=== PATIENT | female | born 1985 | race Caucasian/White ===

== ENCOUNTER → 2017-01-01 | Outpatient (CLI) | payer BC ==
--- NOTE | 2017-01-02 05:27 | CT ---
Procedure: CT CHEST WITH IV CONTRAST Exam date: 01/01/2017 8:21 AM CDT Ordering Provider: BRITTNI POLO Clinical Indication: COUGH Comparison: None Technique: Using a multislice scanner, sequential axial imaging was obtained in the thorax from the level of the thoracic inlet through the lung bases. The exam was obtained with the administration of IV contrast. 2D sagittal and coronal reconstructed images were obtained. This exam was performed according to our departmental dose optimization program which includes use of automated exposure control, adjustment of the mA and/or kV according to patient size and/or use of iterative reconstruction technique. FINDINGS: There are no pulmonary masses or nodules. There is no alveolar or interstitial infiltrate. There are no pleural effusions. Cardiac size is normal. There is no pericardial effusion. Aorta and pulmonary arteries are grossly unremarkable. Bullous timing was not sent for pulmonary angiography and segmental or subsegmental pulmonary emboli cannot be excluded. No dissection or aneurysm seen. There is no supraclavicular or axillary lymphadenopathy. There is no mediastinal, hilar, or subcarinal lymphadenopathy. There are no skeletal abnormalities. IMPRESSION 1. Negative contrast enhanced CT scan of the chest. Electronically signed by: Gene Loaiza MD 01/02/2017 5:26 AM CDT
== END | disposition home or self-care (01) ==
LOC: CT 08:15
PROVIDERS: ATTEND Emergency Medicine
DX: R05 Cough (principal)

== ENCOUNTER 2018-01-22 23:12 | Emergency (ER) | payer BC ==
[2018-01-22] MEDS ORDERED: ALPRAZolam 0.25 MG TAB PO ONE (23:37)
[2018-01-22] MEDS ORDERED: SODIUM CHLORIDE 0.9% 1000ML 1,000 ML IVS ONE (23:37)
--- NOTE | 2018-01-22 23:44 | ED.PDOC ---
History of Present Illness - General Chief Complaint: Behavioral / Psych Stated Complaint: rash and shortness of breath Time Seen by Provider: 01/22/18 23:27 Source: patient Exam Limitations: no limitations - History of Present Illness Initial Comments: patient comes in today secondary to hives, tachycardia, and shortness of breath. Patient began having hives on but they seemed to worsen through Wednesday. On Wednesday she was seen by urgent care after her whole face was swollen and there are hives throughout her face, body, and extremities. She has no new lotions, soaps, or detergents. She has had no new food intake. However, she has been under some increased stress with her [id number] having recently had a stroke and urgent care thought the stress might be causative. Yesterday she was seen in urgent care clinic and given Benadryl, Atarax, and steroids. Patient states it did get better but they came back again today. Patient states that when she was seen in urgent care heart rate was in the 140s and that has persisted since yesterday. Currently, she feels like she has tightness to her chest with onset of . Patient's family was concerned that the hives have come back and she continues to have the shortness of breath that she originally was seen for at urgent care. Patient denies any fever, chills, cough or cold symptoms. She has no wheezing. However, she had been having some diarrhea, nausea, and decreased by mouth intake over the last 2 days. She has known anxiety disorder as well as as well as bipolar disorder but no other medical history. 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 She has been clean since cessation. The patient sugery history is positive for section 2 and Essure coil sterilization. Timing/Duration: 24 hours Severity: severe Improving Factors: nothing Worsening Factors: eating, movement Associated Symptoms: chest pain, nausea/vomiting Allergies/Adverse Reactions: Allergies NO KNOWN ALLERGY Allergy (Verified 01/22/18 23:24) Home Medications: Ambulatory Orders B-Complex Vitamins [Vitamin B-Complex] 1 tab PO DAILY 03/06/16 Celecoxib [CeleBREX] 100 mg PO DAILY 03/06/16 DULoxetine HCL [Cymbalta] 30 mg PO DAILY 03/06/16 Loratadine [Claritin] 10 mg PO DAILY 03/06/16 Multiple Vitamins W/ Minerals [Thrive For Life Womens] 1 tab PO DAILY 03/06/16 Metoprolol Succinate [Toprol Xl] 25 mg PO DAILY 15 Days #15 tab 01/23/18 Review of Systems - Review of Systems Constitutional: States: malaise, weakness. Denies: chills, fever EENTM: States: no symptoms reported. Denies: blurred vision, ear pain, nose pain, throat pain Respiratory: States: short of breath. Denies: cough, wheezing Cardiology: States: chest pain. Denies: edema, syncope Gastrointestinal/Abdominal: States: diarrhea, nausea. Denies: abdominal pain, constipation, vomiting Genitourinary: States: no symptoms reported. Denies: dysuria, frequency, hematuria Skin: States: see HPI Neurological: States: anxiety Past Medical History (General) - Patient Medical History Hx Dementia: No Hx Asthma: No Hx Cardiac Disorders: No Hx Congestive Heart Failure: No Hx Hypertension: No Hx Diabetes: No Hx Renal Disease: No Hx MRSA: No Hx Other PMH: Yes - bipolar and anxiety disorder Surgical History: other - Vaccination History Hx Tetanus, Diphtheria Vaccination: No Hx Influenza Vaccination: No Hx Pneumococcal Vaccination: No - Social History Hx Tobacco Use: No Hx Alcohol Use: Yes - occ Hx Depression: Yes - Female History Patient is a Female of Child Bearing Age (10 -59 yrs old): Yes Patient : No - Triage Comment ED Triage Comment: spouse reports pt started breaking out in hives on night and started having tightness in her chest on Wednesday. She was seen in urgent care on Wednesday, was given a steroid. However today she still feels short of breath, chest tightness, and her pulse is high around 130-140s. Pt still has rash that is itchy. Pt does have generalized anxiety disorder and is Bipolar. Pt and spouse have been going through lots of stress lately. Family Medical History - Family History Mother Hx Family Hypertension: Yes Father Hx Family Cancer: Yes Physical Exam - Physical Exam General Appearance: Alert, Ill Appearing Eye Exam: bilateral normal Ears, Nose, Throat: hearing grossly normal, normal ENT inspection, normal pharynx Neck: non-tender, full range of motion, supple, normal inspection Respiratory: chest non-tender, lungs clear, normal breath sounds, no respiratory distress, no accessory muscle use Cardiovascular/Chest: normal peripheral pulses, regular rate, rhythm, no edema, no gallop, no JVD, no murmur Peripheral Pulses: radial,right: 2+, radial,left: 2+ Gastrointestinal/Abdominal: normal bowel sounds, non tender, soft, no organomegaly Back Exam: normal inspection, no CVA tenderness Extremity: normal range of motion, non-tender Neurologic: alert, oriented x 3 Skin Exam: rash - blancable coalescing urticaria on face, chest, abdomen, and extremities Progress - Progress Progress: 01/23/18 00:21 patient continued to have shortness of breath that worsened during work up as her pulse raised to 144. Patient was given IV Labetolol and her symptoms greatly improved as her heart rate decreased to 104. After further questioning she did not she had lost 13 pounds in the last 2 weeks, she denies heat/cold intolerance, and states they had noticed in the last 3 weeks her fitness watch would note a HR in the 120s at times during rest. She has been more tired than usual. 01/23/18 03:39 Patient is feeling better. She continues to have some hives and some chest tightness that has been present since onset of the hives. Her breathing is better and her HR has stabilized at high 90s. We had called for possible transfer and discussed case with Dr. Workman in detail. Her EKG was reviewed and at this time he did not feel she needed urgent cardiology consult as she was improved and work up has been negative. D-dimer came back subsequently high and CTA was ordered. It was negative. He did suggest that she should have hypercoagable work up and venous doppler even if CTA was negative. We discussed this with patient. She has no swelling of her legs today. Plan for today is to start her on metoprolol xl 25 mg po qd and have her follow up with PCP on Wednesday. Repeat D-dimer and venous dopplers may need to be ordered at that time. Return to ER for increased heart rate, shortness of breath, worsening symptoms. 01/23/18 03:44 - Results/Orders Results/Orders: 01/22/18 23:37 Sodium Chloride 0.9% 1000ML [Ns 1000 ml] 1,000 ml IVS ONCE 01/22/18 23:55 HGBA1C [HEMOGLOBIN A1C] Stat 01/23/18 00:10 Chest,1 View [RAD] Stat 01/23/18 00:13 FREE THYROXINE (FT4) Stat Laboratory Results WBC 12.5 K/mm3 (4.8-10.8) H 01/22/18 23:37 RBC 4.59 M/mm3 (4.20-5.40) 01/22/18 23:37 Hgb 13.9 gm/dL (12.0-16.0) 01/22/18 23:37 Hct 41.3 % (36.0-47.0) 01/22/18 23:37 MCV 89.9 fl (81.0-99.0) 01/22/18 23:37 MCH 30.2 pg (27.0-31.0) 01/22/18 23:37 MCHC 33.6 g/dL (33.0-37.0) 01/22/18 23:37 RDW 13.1 % (11.5-14.5) 01/22/18 23:37 Plt Count 317 K/mm3 (130-400) 01/22/18 23:37 MPV 8.2 fl (7.40-10.4) 01/22/18 23:37 Absolute Neuts (auto) 11.10 K/uL (1.8-6.8) H 01/22/18 23:37 Absolute Lymphs (auto) 1.10 K/uL (1.0-3.4) 01/22/18 23:37 Absolute Monos (auto) 0.30 K/uL (0.2-0.8) 01/22/18 23:37 Absolute Eos (auto) 0.00 K/uL (0.0-0.4) 01/22/18 23:37 Absolute Basos (auto) 0.00 K/uL (0.0-0.1) 01/22/18 23:37 Neutrophils % 88.6 % (42.0-78.0) H 01/22/18 23:37 Lymphocytes % 8.6 % (20.0-50.0) L 01/22/18 23:37 Monocytes % 2.7 % (2.0-9.0) 01/22/18 23:37 Eosinophils % 0.0 % (1.0-5.0) L 01/22/18 23:37 Basophils % 0.1 % (0.0-2.0) 01/22/18 23:37 Sodium 137 mmol/L (135-145) 01/22/18 23:37 Potassium 3.7 mmol/L (3.6-5.0) 01/22/18 23:37 Chloride 104 mmol/L (101-111) 01/22/18 23:37 Carbon Dioxide 23 mmol/L (21-31) 01/22/18 23:37 Anion Gap 13.7 (12-18) 01/22/18 23:37 BUN 10 mg/dL (7-18) 01/22/18 23:37 Creatinine 0.71 mg/dL (0.6-1.3) 01/22/18 23:37 BUN/Creatinine Ratio 14.1 (-20) 01/22/18 23:37 Random Glucose 224 mg/dL (70-105) H 01/22/18 23:37 Serum Osmolality 279.8 mOsm/L (275-295) 01/22/18 23:37 Calcium 8.9 mg/dL (8.4-10.2) 01/22/18 23:37 Total Bilirubin 0.5 mg/dL (0.2-1.0) 01/22/18 23:37 AST 29 IU/L (10-42) 01/22/18 23:37 ALT 31 IU/L (10-60) 01/22/18 23:37 Alkaline Phosphatase 32 IU/L (42-121) L 01/22/18 23:37 Creatine Kinase 24 IU/L (26-140) L 01/22/18 23:37 CK-MB (CK-2) 0.5 ng/mL (0.0-4.4) 01/22/18 23:37 CK-MB (CK-2) % Not Reportable 01/22/18 23:37 Troponin I < 0.02 ng/mL (0.01-0.05) 01/22/18 23:37 Serum Total Protein 7.4 gm/dL (6.4-8.2) 01/22/18 23:37 Albumin 3.9 g/dl (3.2-5.5) 01/22/18 23:37 Globulin 3.5 gm/dL (2.3-3.5) 01/22/18 23:37 Albumin/Globulin Ratio 1.1 (1.1-1.9) 01/22/18 23:37 TSH 0.13 uIU/mL (0.34-5.60) L 01/22/18 23:37 AB.39/35.6/81/97.6% Patient Name: SADIE RODRIGUEZ Gender: Female Date of : 1985 Referring Physician: ANUSHKA MARTIN Organization: [facility] Accession Number: [id number] Requested Date: January 23, 2018 02:29 Report Status: Final Requested Procedure: 1 Procedure Description: CTA Chest Modality: CT Findings Reporting MD: Tank Marcano MD: Not available Dictation Time: Credit Risk Review Officer: Not available Drawing In Hand Date: EXAM: CT ANGIOGRAM OF THE CHEST USING INTRAVENOUS ADMINISTRATION OF NONIONIC IODINATED CONTRAST MATERIAL. CLINICAL INDICATION: Elevated d-dimer. Shortness of breath. COMPARISON: Today's chest radiograph. TECHNIQUE: Using helical technique, thin section axial images were performed through the chest after the uncomplicated intravenous administration of nonionic iodinated contrast material. Axially acquired data was then transferred to a dedicated CT workstation to facilitate parasagittal, coronal and volumetric 3-D reconstructions. Outbound Telemarketing Representative volumetric 3-D reconstructions for this examination were permanently stored on the PACS system. FINDINGS: Great vessels the chest are normal. No pulmonary embolism. Greatest diameter of the ascending thoracic aorta equals approximately 3.1 cm. No suspicious hilar, mediastinal or axillary lymphadenopathy. Cardiac size and contour are normal. No pericardial effusion. Peripheral right upper lobe lung nodule measuring 4.5 mm in diameter. 4.3 mm pleural-based right lower lobe nodule. Partially visualized 9 mm peripheral inferior right lower lobe nodule. Bibasilar atelectasis. The lungs are otherwise clear. No pleural effusions, regions of pleural thickening or pleural calcification. Bones appear normal. IMPRESSION: 1. No pulmonary embolism. 2. 3 peripheral low suspicion right noncalcified lung nodules. No acute cardiopulmonary disease. Recommend follow-up postcontrast chest CT examination in 3-6 months time. 3. The thoracic aorta appears normal given cardiac motion artifact. This exam was EKG # 2 NSR no tachycardia normal QTC - EKG/XRAY/CT EKG: Sinus, Tachy Comments: HR 127 with normal axis, no ST elevation but cannot rule out ant infarct Departure - Departure Clinical Impression: Sinus tachycardia Disposition: Discharge to Home or Self Care Condition: Fair Departure Forms: ED Discharge - Pt. Copy, Patient Portal Self Enrollment Referrals: BRITTNI POLO [Primary Care Provider] - 1-2 Weeks Home Medications: Ambulatory Orders B-Complex Vitamins [Vitamin B-Complex] 1 tab PO DAILY 03/06/16 Celecoxib [CeleBREX] 100 mg PO DAILY 03/06/16 DULoxetine HCL [Cymbalta] 30 mg PO DAILY 03/06/16 Loratadine [Claritin] 10 mg PO DAILY 03/06/16 Multiple Vitamins W/ Minerals [Thrive For Life Womens] 1 tab PO DAILY 03/06/16 Metoprolol Succinate [Toprol Xl] 25 mg PO DAILY 15 Days #15 tab 01/23/18 Additional Instructions: Follow up on Wednesday with PCP to discuss further work up for D-Dimer if still elevated including venous dopplers. Patient should return to ER for return of increased heart rate, shortness of breath, worsening symptoms.
[2018-01-23] MEDS ORDERED: LABETALOL INJ 5 MG/ML VIAL IV ONE ×2 (00:10→01:20)
[2018-01-23] MEDS ORDERED: LABETALOL INJ 5 MG/ML VIAL ONE (00:11)
--- NOTE | 2018-01-23 00:30 | RAD ---
EXAM DESCRIPTION: AP view of the chest CLINICAL HISTORY:32 years Female, shortness of breath Comparison: None FINDINGS: No focal lung consolidation. No pleural effusion. No pneumothorax. Cardiac and mediastinal silhouette is unremarkable. No acute osseous abnormality. Soft tissues are unremarkable. IMPRESSION: No acute findings. No focal lung consolidation. Electronically signed by: Farrukh Ballard DO 01/23/2018 12:28 AM CDT
[2018-01-23 01:04] VITALS: O2SAT 97
--- NOTE | 2018-01-23 03:32 | CT ---
EXAM: CT ANGIOGRAM OF THE CHEST USING INTRAVENOUS ADMINISTRATION OF NONIONIC IODINATED CONTRAST MATERIAL. CLINICAL INDICATION: Elevated d-dimer. Shortness of breath. COMPARISON: Today's chest radiograph. TECHNIQUE: Using helical technique, thin section axial images were performed through the chest after the uncomplicated intravenous administration of nonionic iodinated contrast material. Axially acquired data was then transferred to a dedicated CT workstation to facilitate parasagittal, coronal and volumetric 3-D reconstructions. Technical Systems Architect volumetric 3-D reconstructions for this examination were permanently stored on the PACS system. FINDINGS: Great vessels the chest are normal. No pulmonary embolism. Greatest diameter of the ascending thoracic aorta equals approximately 3.1 cm. No suspicious hilar, mediastinal or axillary lymphadenopathy. Cardiac size and contour are normal. No pericardial effusion. Peripheral right upper lobe lung nodule measuring 4.5 mm in diameter. 4.3 mm pleural-based right lower lobe nodule. Partially visualized 9 mm peripheral inferior right lower lobe nodule. Bibasilar atelectasis. The lungs are otherwise clear. No pleural effusions, regions of pleural thickening or pleural calcification. Bones appear normal. IMPRESSION: 1. No pulmonary embolism. 2. 3 peripheral low suspicion right noncalcified lung nodules. No acute cardiopulmonary disease. Recommend follow-up postcontrast chest CT examination in 3-6 months time. 3. The thoracic aorta appears normal given cardiac motion artifact. This exam was performed according to our departmental dose-optimization program, which includes automated exposure control, adjustment of the mA and/or kV according to patient size and/or use of iterative reconstruction technique. 2017 Fleischner Society Recommendations for Multiple Solid Lung Nodules Follow-Up base on size (average of long- and short-axis diameters). Use most suspicious nodule for followup. Nodule Size <6 mm Low-Risk Patient: No routine follow-up Nodule Size <6 mm High-Risk Patient: Optional CT at 12 months Nodule Size 6-8 mm Low-Risk Patient: CT at 3-[address] at 18-24 months Nodule Size 6-8 mm High-Risk Patient: CT at 3-6 months then at 18-24 months Nodule Size (mm) >8 Low-Risk Patient: CT at 3-6 months, then consider CT at 18-24 months Nodule Size (mm) >8 High-Risk Patient: CT at 3-6 months, then at 18-24 months Electronically signed by: Tank Marcano MD 01/23/2018 3:31 AM CDT
[2018-01-23] MEDS ORDERED: METOPROLOL SUCCINATE XL 25 MG TAB PO ONE (03:45)
[2018-01-23 03:59] VITALS: BP 141/75; TEMP 99
== END 2018-01-23 03:59 | disposition home or self-care (01) ==
LOC: ER 23:12
DX: R00.0 Tachycardia, unspecified (principal); R06.02 Shortness of breath; L50.9 Urticaria, unspecified; F41.9 Anxiety disorder, unspecified; F31.9 Bipolar disorder, unspecified; Z79.899 Other long term (current) drug therapy
CPT/HCPCS: 36415; 36600; 71045; 71275; 80053; 80307; 82550; 82553; 82803; 82805; 83036; 83880; 84439; 84443; 84484; 84703; 85025; 85379; 93005; J2060; J7030

== ENCOUNTER → 2018-08-17 | Outpatient (CLI) | payer BC ==
--- NOTE | 2018-08-17 13:13 | US ---
EXAM DESCRIPTION: Venous,Lower Extremity LT (accession [id number]), ultrasound. Venous,Lower Extremity RT (accession [id number]): Ultrasound. CLINICAL HISTORY: LEG PAIN. Bilateral. Swelling left calf. COMPARISON: None Available. TECHNIQUE: Two -dimensional and doppler sonographic evaluation of the deep venous system of the bilateral lower extremities. FINDINGS: Doppler evaluation shows normal color flow and normal phasicity and augmentation of the bilateral common femoral veins, femoral veins, popliteal veins, and peroneal veins, and Posterior tibial veins. These veins showed normal occlusion with transducer pressure. Two-dimensional survey showed no echogenic clot within these veins. No subcutaneous edema, solid mass, cyst, large calcification, or abnormal vascularity in the left calf. IMPRESSION: Duplex ultrasound evaluation of the bilateral lower extremity deep venous systems showing no evidence of thrombosis. No abnormality seen in the region of interest on the left calf. Electronically signed by: Gage Mai MD 08/17/2018 1:11 PM CDT
--- NOTE | 2018-08-17 13:14 | US ---
EXAM DESCRIPTION: Venous,Lower Extremity LT (accession [id number]), ultrasound. Venous,Lower Extremity RT (accession [id number]): Ultrasound. CLINICAL HISTORY: LEG PAIN. Bilateral. Swelling left calf. COMPARISON: None Available. TECHNIQUE: Two -dimensional and doppler sonographic evaluation of the deep venous system of the bilateral lower extremities. FINDINGS: Doppler evaluation shows normal color flow and normal phasicity and augmentation of the bilateral common femoral veins, femoral veins, popliteal veins, and peroneal veins, and Posterior tibial veins. These veins showed normal occlusion with transducer pressure. Two-dimensional survey showed no echogenic clot within these veins. No subcutaneous edema, solid mass, cyst, large calcification, or abnormal vascularity in the left calf. IMPRESSION: Duplex ultrasound evaluation of the bilateral lower extremity deep venous systems showing no evidence of thrombosis. No abnormality seen in the region of interest on the left calf. Electronically signed by: Gage Mai MD 08/17/2018 1:11 PM CDT
== END ==
LOC: US 12:06
PROVIDERS: ATTEND Emergency Medicine
DX: M79.605 Pain in left leg (principal); M79.604 Pain in right leg

== ENCOUNTER 2019-03-28 23:22 | Emergency (ER) | payer BC ==
[2019-03-28 23:59] VITALS: TEMP 97.5; O2SAT 100
[2019-03-29] MEDS ORDERED: NEO/POLY/HC OTIC SUSP 10 ML BTTL RIGHT_EAR ONE (00:07)
[2019-03-29] MEDS ORDERED: HYDROCOD/APAP 10/325 (ER DISP) # 3 tablets PO ONE (00:07)
[2019-03-29] MEDS ORDERED: HYDROcodone 10MG/APAP 325MG 1 EA TAB PO ONE (00:07)
--- NOTE | 2019-03-29 00:13 | ED.PDOC ---
History of Present Illness - General Chief Complaint: ENT Problem Stated Complaint: ear pain Time Seen by Provider: 03/29/19 00:06 Additional Information: Patient is a 33-year-old female who presents to the ED with chief complaint of right earache for one week. This pain has been constant and then gradually getting worse. Patient went to an urgent care center yesterday and the provider told patient that she could not see the eardrum and patient was prescribed Augmentin empirically. Patient complains of pain with motion to the ear, she denies any discharge. Patient indicates for the past 4 months she has been having chronic recurrent ear infections in her right ear that began after a tympanic membrane perforation from infection. Patient has been treated intermittently since then with both oral and topical antibiotics. Patient d enies fever, chills, nausea, vomiting. Patient is asymptomatic other than her ear. - History of Present Illness Allergies/Adverse Reactions: Allergies NO KNOWN ALLERGY Allergy (Verified 01/22/18 23:24) Home Medications: Ambulatory Orders B-Complex Vitamins [Vitamin B-Complex] 1 tab PO DAILY 03/06/16 Celecoxib [CeleBREX] 100 mg PO DAILY 03/06/16 DULoxetine HCL [Cymbalta] 30 mg PO DAILY 03/06/16 Loratadine [Claritin] 10 mg PO DAILY 03/06/16 Multiple Vitamins W/ Minerals [Thrive For Life Womens] 1 tab PO DAILY 03/06/16 Metoprolol Succinate [Toprol Xl] 25 mg PO DAILY 15 Days #15 tab 01/23/18 Acetaminophen W/ Codeine [Tylenol W/ CODEINE #3] 1 ea PO Q6H PRN #20 03/29/19 Review of Systems - Review of Systems Constitutional: Denies: chills, fever EENTM: States: ear pain. Denies: ear discharge, nose congestion, throat pain Respiratory: States: no symptoms reported. Denies: cough, short of breath Cardiology: States: no symptoms reported. Denies: chest pain, palpitations Gastrointestinal/Abdominal: States: no symptoms reported. Denies: nausea, vomiting All other Systems: Reviewed and Negative Past Medical History (General) - Patient Medical History Hx Dementia: No Hx Asthma: No Hx Cardiac Disorders: No Hx Congestive Heart Failure: No Hx Hypertension: Yes Hx Diabetes: No Hx Renal Disease: No Hx MRSA: No Surgical History: other - Vaccination History Hx Tetanus, Diphtheria Vaccination: No Hx Influenza Vaccination: No Hx Pneumococcal Vaccination: No - Social History Hx Tobacco Use: No Hx Alcohol Use: Yes - occ Hx Depression: Yes - Female History Patient : No Family Medical History - Family History Mother Hx Family Hypertension: Yes Father Hx Family Cancer: Yes Physical Exam - Physical Exam General Appearance: Alert, No apparent distress, Other - uncomfortable Ear Exam: right ear: canal normal - canal is mildly edematous with debris. The canal is patent and not swollen closed. Moderate tenderness palpation with speculum evaluation., left ear: TM normal - right TM is not visible., bilateral ear: auricle normal Nasal Exam: normal inspection, other - negative right mastoid bone tenderness to palpation. Throat Exam: normal mouth inspection, pharynx normal Neck: non-tender, full range of motion, supple, normal inspection Cardiovascular/Respiratory: regular rate, rhythm, no M/R/G Neurologic: no motor/sensory deficits, alert, normal mood/affect Skin Exam: normal color, warm/dry Progress - Progress Progress: 03/29/19 00:16 Patient clinically with recurrent otitis externa. Her canal is patent and she does not need an ear wick. Cortisporin otic solution placed in patient's here in the ED and I will DC patient home with a bottle with instructions for her to place 4 drops in her right ear 4 times a day. She will continue with her Augmentin. I will discharge with Tylenol 3 and patient to follow-up with her ENT doctor at her already scheduled appointment at the beginning of April. Vital signs stable, patient NAD and looks clinically well, and I believe is safe for discharge with outpatient follow-up. Follow-up instructions, discharge instructions and return to ED precautions discussed with patient. Patient voices understanding and willingness to comply with instructions. All laboratory and radiographic results have been discussed with the patient, and all questions answered. Patient is happy with plan. 03/29/19 00:20 Departure - Departure Clinical Impression: Otitis externa Qualifiers: Otitis externa type: unspecified type Chronicity: acute Laterality: right Qualified Code(s): H60.501 - Unspecified acute noninfective otitis externa, right ear Time of Disposition: 00:18 Disposition: Discharge to Home or Self Care Condition: Good Departure Forms: ED Discharge - Pt. Copy, Patient Portal Self Enrollment Instructions: DI for Ear Pain-Adult, DI for Otitis Externa Referrals: BRITTNI POLO [Primary Care Provider] - 1-5 Days Prescriptions: Acetaminophen W/ Codeine [Tylenol W/ CODEINE #3] 1 ea PO Q6H PRN #20 PRN Reason: Pain Home Medications: Ambulatory Orders B-Complex Vitamins [Vitamin B-Complex] 1 tab PO DAILY 03/06/16 Celecoxib [CeleBREX] 100 mg PO DAILY 03/06/16 DULoxetine HCL [Cymbalta] 30 mg PO DAILY 03/06/16 Loratadine [Claritin] 10 mg PO DAILY 03/06/16 Multiple Vitamins W/ Minerals [Thrive For Life Womens] 1 tab PO DAILY 03/06/16 Metoprolol Succinate [Toprol Xl] 25 mg PO DAILY 15 Days #15 tab 01/23/18 Acetaminophen W/ Codeine [Tylenol W/ CODEINE #3] 1 ea PO Q6H PRN #20 03/29/19
[2019-03-29 00:25] VITALS: BP 126/82
== END 2019-03-29 00:32 | disposition home or self-care (01) ==
LOC: ER 23:22
DX: H60.501 Unspecified acute noninfective otitis externa, right ear (principal); I10 Essential (primary) hypertension; F32.9 Major depressive disorder, single episode, unspecified; Z79.899 Other long term (current) drug therapy

== ENCOUNTER 2019-09-30 21:49 | Emergency (ER) | payer BC, OTHER ==
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
[2019-09-30] MEDS ORDERED: SODIUM CHLORIDE 0.9% 1000ML 1,000 ML IVS ONE (22:03)
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
[2019-09-30 22:57] VITALS: TEMP 98.1
[2019-09-30 23:02] VITALS: O2SAT 100
[2019-10-01 00:22] VITALS: BP 142/88
== END 2019-10-01 00:21 | disposition home or self-care (01) ==
LOC: ER 21:49
DX: I10 Essential (primary) hypertension (principal); R07.9 Chest pain, unspecified; R00.0 Tachycardia, unspecified
CPT/HCPCS: 71045; 80053; 82550; 83880; 84443; 84484; 85025; 85379; 93005; J7030

== ENCOUNTER 2020-01-22 08:26 | Emergency (ER) | payer OTHER ==
[2020-01-22] MEDS ORDERED: SODIUM CHLORIDE 0.9% (FLUSH) 10 ML SYG IV PRN (08:41)
[2020-01-22] MEDS ORDERED: ONDANSETRON INJ 4 MG/2 ML VIAL IV ONE (08:42)
[2020-01-22] MEDS ORDERED: KETOROLAC TROMETHAMINE INJ 30 MG/ML VIAL IV ONE (08:42)
[2020-01-22] MEDS ORDERED: SODIUM CHLORIDE 0.9% 1000ML 1,000 ML IVS ONE (08:42)
[2020-01-22] MEDS ORDERED: MORPHINE SULFATE INJ 10 MG/ML VIAL IV ONE ×3 (08:42→12:08)
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
[2020-01-22] MEDS ORDERED: ALPRAZolam 0.25 MG TAB PO ONE (09:57)
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
[2020-01-22 13:01] VITALS: BP 142/88; TEMP 98.4; O2SAT 98
== END 2020-01-22 13:10 | disposition home or self-care (01) ==
LOC: ER 08:26
DX: S52.502A Unspecified fracture of the lower end of left radius, initial encounter for closed fracture (principal); M54.6 Pain in thoracic spine; M54.2 Cervicalgia; R00.0 Tachycardia, unspecified; M25.512 Pain in left shoulder; I10 Essential (primary) hypertension; V40.5XXA Car driver injured in collision with pedestrian or animal in traffic accident, initial encounter; Y92.410 Unspecified street and highway as the place of occurrence of the external cause
CPT/HCPCS: 36415; 70450; 71045; 71260; 72125; 72170; 73030; 73090; 73130; 80053; 84484; 84703; 85025; 85610; 85730; 93005; 94760; A4216; J1885; J2270; J2405; J7030